=== PATIENT | female | born 1935 | race Caucasian/White ===

== ENCOUNTER 2017-01-08 17:52 | Inpatient (IN) | payer MEDICARE ==
[~2017-01-08] VITALS: Ht 157.5 cm; Wt 107.3 kg
[2017-01-08] MEDS ORDERED: IV SET PRIMARY PUMP SET 1 EA INFUS.SET MC ONE ×3 (18:48→19:07)
[2017-01-08] MEDS ORDERED: IV NS 0.9% 1,000 ML ONE (18:48)
[2017-01-08 18:52] LABS: BASOPHILS # (AUTO) 0.2 /CMM (0.0-0.2); BASOPHILS % (AUTO) 2.8 % (0.0-2.0); DIFF TOTAL % 100 %; EOSINOPHILS % (AUTO) 0.3 % (0.0-6.0); HEMATOCRIT 47 % (33-45); HEMOGLOBIN 15.4 g/dL (11.5-14.8); LYMPHOCYTES # (AUTO) 0.8 /CMM (0.8-4.8); LYMPHOCYTES % (AUTO) 9.8 % (20.0-44.0); MEAN CORPUSCULAR HEMOGLOBIN 28 PG (26.0-33.0); MEAN CORPUSCULAR HGB CONC 33 g/dl (31.0-36.0); MEAN CORPUSCULAR VOLUME 86 fL (82-100); MONOCYTES # (AUTO) 0.5 /CMM (0.1-1.30); MONOCYTES % (AUTO) 6.5 % (2.0-12.0); NEUTROPHILS # (AUTO) 6.8 /CMM (1.8-8.9); NEUTROPHILS % (AUTO) 80.6 % (43.0-81.0); PLATELET COUNT (AUTO) 233 /CMM (150-450); RED BLOOD CELL COUNT(AUTO) 5.45 MIL/uL (4.0-5.2); WHITE BLOOD COUNT (AUTO) 8.3 K/uL (4.3-11.0)
[2017-01-08 18:59] LABS: ANION GAP 12 (5-14); CALCIUM, SERUM 9.3 mg/dL (8.5-10.1); CARBON DIOXIDE 30 mmol/L (21-32); CHLORIDE 100 mmol/L (98-107); GLUCOSE 180 mg/dL (74-106); POTASSIUM 4.6 mmol/L (3.5-5.1); SODIUM SERUM 137 mmol/L (136-145); UREA NITROGEN, BLOOD 15 mg/dL (7-18)
[2017-01-08] MEDS ORDERED: IV NS 0.9% 1,000 ML BAG IV ONE ×2 (19:00)
[2017-01-08] MEDS ORDERED: CEFTRIAXONE 1GM BAG (ER ONLY) 50 ML IV ONE ×2 (19:00→19:07)
[2017-01-08 19:05] LABS: ALANINE AMINOTRANSFERASE 96 U/L (12-78); ALBUMIN 3.4 g/dL (3.4-5.0); ASPARTATE AMINOTRANSFERASE 92 U/L (15-37); BILIRUBIN,DIRECT 0.2 mg/dL (0.0-0.2); BILIRUBIN,TOTAL 0.8 mg/dL (0.2-1.0); INDIRECT BILIRUBIN 0.6 mg/dL (0.0-1.1); TOTAL PROTEIN, SERUM 8.1 g/dL (6.4-8.2)
[2017-01-08] MEDS ORDERED: IV NS 0.9% 2,000 ML ONE (19:06)
[2017-01-08] MEDS ORDERED: ACETAMINOPHEN 325 MG TABLET ONE (19:07)
[2017-01-08 19:09] LABS: TROPONIN I < 0.017 ng/mL (0.00-0.056)
[2017-01-08] MEDS ORDERED: ACETAMINOPHEN 650 MG/20.3 ML UDC PO ONE (19:30)
[2017-01-08 19:46] LABS: KETONES,URINE Negative (NEGATIVE); LEUKOCYTE ESTERASE ,URINE Small (NEGATIVE); PH,URINE 5.5 (5.0-8.0)
[2017-01-08 20:00] VITALS: BP 151/88
[2017-01-08 20:00] LABS: ADD UA MICROSCOPIC YES
[2017-01-08 20:01] LABS: WBC,URINE 51-80 /HPF (0-3)
[2017-01-08 20:02] LABS: ADD URINE CULTURE YES; MUCUS,URINE Moderate /LPF (None Seen)
[2017-01-08 22:05] VITALS: BP 158/88
[2017-01-08] MEDS ORDERED: LORAZEPAM INJ 2 MG/ML VIAL IVP PRN (23:00)
[2017-01-08] MEDS ORDERED: LEVOFLOXACIN 750 MG /D5W 150ML 150 ML IV SCH (23:00)
[2017-01-08] MEDS ORDERED: ZOLPIDEM TARTRATE 5 MG TABLET PO PRN (23:00)
[2017-01-08] MEDS ORDERED: MORPHINE SULFATE INJ 2 MG/ML DISP.SYRIN IV PRN (23:00)
[2017-01-08] MEDS ORDERED: ACETAMINOPHEN 325 MG TABLET PO PRN (23:00)
[2017-01-08] MEDS ORDERED: ONDANSETRON HCL/PF 4 MG/2 ML VIAL IVP PRN (23:00)
[2017-01-08] MEDS ORDERED: ESCI5TAB PO (23:27)
[2017-01-08] MEDS ORDERED: LEVO75TA7 PO (23:27)
[2017-01-08] MEDS ORDERED: DONE5TAB3 PO (23:27)
[2017-01-09] VITALS: BP 134/68
[2017-01-09 00:01] LABS: ALBUMIN 2.9 g/dL (3.4-5.0); BILIRUBIN,DIRECT 0.1 mg/dL (0.0-0.2); BILIRUBIN,TOTAL 0.4 mg/dL (0.2-1.0); INDIRECT BILIRUBIN 0.3 mg/dL (0.0-1.1)
[2017-01-09 00:09] LABS: LACTIC ACID 1.5 mmol/L (0.4-2.0)
[2017-01-09] MEDS ORDERED: SECONDARY IV SET 1 EA INFUS.SET MC ONE ×2 (00:44→16:51)
[2017-01-09] MEDS ORDERED: IV NS 0.9% 1,000 ML ONE (00:44)
[2017-01-09] MEDS ORDERED: IV SET PRIMARY PUMP SET 1 EA INFUS.SET MC ONE (00:44)
[2017-01-09] MEDS: IV NS 0.9% 1,000 ML IV PRN ×2 (00:56→17:11)
[2017-01-09 08:00] VITALS: BP 138/97
[2017-01-09 08:05] LABS: BASOPHILS % (AUTO) 0.2 % (0.0-2.0); DIFF TOTAL % 100 %; EOSINOPHILS % (AUTO) 0.3 % (0.0-6.0); HEMATOCRIT 38 % (33-45); HEMOGLOBIN 12.4 g/dL (11.5-14.8); LYMPHOCYTES # (AUTO) 0.7 /CMM (0.8-4.8); LYMPHOCYTES % (AUTO) 11.2 % (20.0-44.0); MEAN CORPUSCULAR HEMOGLOBIN 28 PG (26.0-33.0); MEAN CORPUSCULAR HGB CONC 33 g/dl (31.0-36.0); MEAN CORPUSCULAR VOLUME 87 fL (82-100); MONOCYTES # (AUTO) 0.6 /CMM (0.1-1.30); NEUTROPHILS # (AUTO) 4.8 /CMM (1.8-8.9); NEUTROPHILS % (AUTO) 78.3 % (43.0-81.0); PLATELET COUNT (AUTO) 195 /CMM (150-450); RED BLOOD CELL COUNT(AUTO) 4.43 MIL/uL (4.0-5.2); WHITE BLOOD COUNT (AUTO) 6.1 K/uL (4.3-11.0)
[2017-01-09 08:17] LABS: ALBUMIN 2.5 g/dL (3.4-5.0); BILIRUBIN,TOTAL 0.4 mg/dL (0.2-1.0); POTASSIUM 4.4 mmol/L (3.5-5.1); TOTAL PROTEIN, SERUM 6.4 g/dL (6.4-8.2)
[2017-01-09] MEDS: LEVOTHYROXINE SODIUM 75 MCG TABLET PO SCH (09:58)
[2017-01-09] MEDS ORDERED: CEFTRIAXONE 1 G in IV D5W 50 ML IV SCH ×2 (15:00→20:00)
[2017-01-09 16:00] VITALS: BP 158/91
[2017-01-09] MEDS: AZITHROMYCIN 500 MG in IV D5W 250 ML IV SCH (17:11)
[2017-01-09] MEDS ORDERED: DONEPEZIL 5 MG TABLET PO SCH (18:00)
[2017-01-09 20:00] VITALS: BP 125/81
[2017-01-10] MEDS: LEVOTHYROXINE SODIUM 75 MCG TABLET PO SCH (07:30)
[2017-01-10 08:00] VITALS: BP 145/83
[2017-01-10 08:20] LABS: BASOPHILS % (AUTO) 0.4 % (0.0-2.0); DIFF TOTAL % 100 %; EOSINOPHILS # (AUTO) 0.1 /CMM (0.0-0.7); EOSINOPHILS % (AUTO) 2.2 % (0.0-6.0); HEMATOCRIT 39 % (33-45); HEMOGLOBIN 12.8 g/dL (11.5-14.8); LYMPHOCYTES % (AUTO) 16.1 % (20.0-44.0); MEAN CORPUSCULAR HEMOGLOBIN 28 PG (26.0-33.0); MEAN CORPUSCULAR HGB CONC 33 g/dl (31.0-36.0); MEAN CORPUSCULAR VOLUME 86 fL (82-100); MONOCYTES # (AUTO) 0.9 /CMM (0.1-1.30); MONOCYTES % (AUTO) 14.7 % (2.0-12.0); NEUTROPHILS % (AUTO) 66.6 % (43.0-81.0); PLATELET COUNT (AUTO) 188 /CMM (150-450); RED BLOOD CELL COUNT(AUTO) 4.52 MIL/uL (4.0-5.2); WHITE BLOOD COUNT (AUTO) 5.9 K/uL (4.3-11.0)
[2017-01-10 08:30] LABS: CALCIUM, SERUM 8.5 mg/dL (8.5-10.1); CREATININE 0.8 mg/dL (0.6-1.3); POTASSIUM 4.2 mmol/L (3.5-5.1)
[2017-01-10 16:00] VITALS: BP 151/92
[2017-01-10] MEDS ORDERED: LACTOBACILLUS RHAMNOSUS GG 1 EACH CAP.SPRINK PO SCH (17:00)
[2017-01-10] MEDS: AZITHROMYCIN 500 MG in IV D5W 250 ML IV SCH (17:15)
== END 2017-01-10 22:42 | disposition home health service (06) | DRG 193 ==
LOC: ER 17:56 → TELE 21:08 → MED 01-09 08:28
PROVIDERS: ADMIT Internal Medicine; ATTEND Internal Medicine
DX: J15.9 Unspecified bacterial pneumonia (principal); G92 Toxic encephalopathy; E43 Unspecified severe protein-calorie malnutrition; N39.0 Urinary tract infection, site not specified; Z68.41 Body mass index [BMI] 40.0-44.9, adult; G30.9 Alzheimer's disease, unspecified; F02.80 Dementia in other diseases classified elsewhere, unspecified severity, without behavioral disturbance, psychotic disturbance, mood disturbance, and anxiety; F32.9 Major depressive disorder, single episode, unspecified; E03.9 Hypothyroidism, unspecified; Z87.891 Personal history of nicotine dependence; Z66 Do not resuscitate; R74.0 Nonspecific elevation of levels of transaminase and lactic acid dehydrogenase [LDH]; B96.20 Unspecified Escherichia coli [E. coli] as the cause of diseases classified elsewhere
CPT/HCPCS: 36415; 70450-TC; 71010-TC; 80048-TC; 80053-TC; 80076-TC; 81000-TC; 83605-TC; 84443-TC; 84484-TC; 85025-TC; 87040-TC; 87081-TC; 87086-TC; 87186-TC; 87400; 92521; 93307-TC; 94799-TC; 97001-TC; 97003-TC; A4606; J0456; J0696; J1956; J7030; J7060; Z7610